=== PATIENT | female | born 1975 | race African-American/Black ===

== ENCOUNTER 2017-06-13 10:10 | Emergency (ER) | payer OTHER ==
[~2017-06-13] VITALS: Ht 167.6 cm; Wt 125.1 kg
[~2017-06-13 10:10] MED LIST: AMOX875T PO; ATEN50TA7 PO; MECL12.574 PO
[2017-06-13 10:17] VITALS: BP 165/89; PULSE 75; RESP 16; TEMP 98.7; O2SAT 97
[2017-06-13] MEDS ORDERED: CILO0.3S LEFT EYE (10:43)
[2017-06-13] MEDS ORDERED: DIFL150T PO (10:43)
--- NOTE | 2017-06-13 10:43 | PD ---
HPI Chief Complaint: Eye Problems/Injury Time Seen by Provider: 10:27 Travel History International Travel<30 days: No Contact w/Intl Traveler<30days: No Traveled to known affect area: No History of Present Illness HPI 42-year-old female here with left eye pain and foreign body sensation since this morning. Patient reports she is constant lines were has not worn her contacts for several days. She reports when she woke this morning she felt as if she had something in her left eye. She denies injury. She denies visual changes. She reports eye discomfort but does not endorse eye pain. PFSH Past Medical History Medical History: Denies Significant Hx Hypertension: Yes Influenza Vaccination: Yes ?: Not Past Surgical History Surgical History: No Previous Surgery Social History Alcohol Use: No Tobacco Use: No Substance Use: No Allergies-Medications (Allergen,Severity, Reaction): Coded Allergies: lisinopril (Verified Allergy, Severe, SWELLING, 06/13/17) Reported Meds & Prescriptions Reported Meds & Active Scripts Active Diflucan (Fluconazole) 150 Mg Tab 150 Mg PO ONCE Ciloxan Opth Drops (Ciprofloxacin HCl) 0.3% Soln 2 Drop LEFT EYE QID Reported Amoxicillin 875 Mg Tab 875 Mg PO BID Meclizine (Meclizine HCl) 12.5 Mg Tab 12.5 Mg PO DIRECTED PRN Atenolol-Chlorthalidone 50-25 Mg Tab 1 Tab PO DAILY Review of Systems Except as stated in HPI: all other systems reviewed are Neg Physical Exam Narrative GENERAL: Well-nourished, well-developed patient. SKIN: Focused skin assessment warm/dry. HEAD: Normocephalic. EYES: No scleral icterus. No injection or drainage. Left eye: Pupils are equal round and reactive. EOMs intact. Small 1 mm fluorescein dye uptake located at 11:00 on the iris of the left eye. She'll acuity 20/20. NECK: Supple, trachea midline. No JVD or lymphadenopathy. Data Data Last Documented VS Vital Signs Date Time Temp Pulse Resp B/P (MAP) Pulse Ox O2 Delivery O2 Flow Rate FiO2 06/13/17 10:17 98.7 75 16 165/89 (114) 97 Orders Orders Ed Discharge Order (06/13/17 11:03) MDM Medical Decision Making Medical Screen Exam Complete: Yes Emergency Medical Condition: Yes Differential Diagnosis CORNEAL ABRASION, CORNEAL ULCER, corneal foreign body Narrative Course 42-year-old female here with left eye pain and foreign body sensation since this morning. Patient reports she is constant lines were has not worn her contacts for several days. She reports when she woke this morning she felt as if she had something in her left eye. She denies visual changes. She reports eye discomfort but does not endorse eye pain. On exam she has a small 1 mm abrasion located at 11:00 on the iris. Visual acuity 20/20. Visual treated for corneal abrasion. Instructed not for her contact lenses. Follow-up with ophthalmology. Upon discharging the patient she requested a prescription for Diflucan. She reports that she was recently treated with antibiotics for sinus infection and developed a yeast infection. She reports the symptoms are very similar to the C6 infections. She denies abdominal pain, vaginal bleeding or possibility of STI. She will be given a prescription for Diflucan. She'll Follow-up with her PCP or MED SURG RN. Diagnosis Primary Impression: Corneal abrasion Qualified Codes: S05.02XA - Injury of conjunctiva and corneal abrasion without foreign body, left eye, initial encounter Referrals: Special Education Professional Additional Instructions: Do not wear contact lenses Using eye drops as directed. Make an appointment for follow-up with ophthalmology. Return if he developed new or worsening symptoms Scripts Fluconazole (Diflucan) 150 Mg Tab 150 MG PO ONCE for Infection, #1 TAB 0 Refills Prov: Loreto Cross 06/13/17 Ciprofloxacin Opth Drops (Ciloxan Opth Drops) 0.3% Soln 2 DROP LEFT EYE QID for EYE INFECTION, #1 BOTTLE 0 Refills Prov: Loreto Cross 06/13/17 Disposition: 01 DISCHARGE HOME Condition: Stable Loreto Cross Jun 13, 2017 10:43
== END 2017-06-13 11:10 | disposition home or self-care (01) ==
LOC: PHEFT 10:10
DX: S05.02XA Injury of conjunctiva and corneal abrasion without foreign body, left eye, initial encounter (principal); I10 Essential (primary) hypertension; Z79.2 Long term (current) use of antibiotics; Z79.899 Other long term (current) drug therapy
CPT/HCPCS: 99284

== ENCOUNTER 2017-08-08 19:41 | Emergency (ER) | payer OTHER ==
[~2017-08-08] VITALS: Ht 170.2 cm; Wt 128.0 kg
[~2017-08-08 19:41] MED LIST changes: +CILO0.3S LEFT EYE; +DIFL150T PO
--- NOTE | 2017-08-08 20:14 | PD ---
HPI Chief Complaint: Cardiac Complaint Time Seen by Provider: 19:53 Travel History International Travel<30 days: No Contact w/Intl Traveler<30days: No Traveled to known affect area: No History of Present Illness HPI 42-year-old female complains of palpitation chest pain. Patient states that she had intermittent sharp chest pain on the right-sided chest left-sided chest substernally for the past week. Patient states that the chest pain lasted a few seconds then resolved completely. Patient denies any nausea or diaphoresis. Patient started having palpitation this evening. Patient states that the palpitations lasted a short time and resolved completely. Patient denies any feeling of palpitation now. Patient denies a history of CAD. Patient has history of hypertension but has been taking atenolol an chlorthalidone daily. Patient denies a history of diabetes or hyperlipidemia. Patient is not a smoker. PFSH Past Medical History Hypertension: Yes Social History Alcohol Use: No Tobacco Use: No Substance Use: No Allergies-Medications (Allergen,Severity, Reaction): Coded Allergies: lisinopril (Verified Allergy, Severe, SWELLING, 06/13/17) Reported Meds & Prescriptions Reported Meds & Active Scripts Active Diflucan (Fluconazole) 150 Mg Tab 150 Mg PO ONCE Ciloxan Opth Drops (Ciprofloxacin HCl) 0.3% Soln 2 Drop LEFT EYE QID Reported Amoxicillin 875 Mg Tab 875 Mg PO BID Meclizine (Meclizine HCl) 12.5 Mg Tab 12.5 Mg PO DIRECTED PRN Atenolol-Chlorthalidone 50-25 Mg Tab 1 Tab PO DAILY Review of Systems General / Constitutional: No: Fever Eyes: No: Visual changes HENT: No: Headaches Cardiovascular: Positive: Chest Pain or Discomfort, Palpitations Respiratory: No: Shortness of Breath Gastrointestinal: No: Abdominal Pain Genitourinary: No: Dysuria Musculoskeletal: No: Pain Skin: No Rash Neurologic: No: Weakness Psychiatric: No: Depression Endocrine: No: Polydipsia Hematologic/Lymphatic: No: Easy Bruising Physical Exam Narrative GENERAL: Well-nourished, well-developed patient. SKIN: Focused skin assessment warm/dry. HEAD: Normocephalic. EYES: No scleral icterus. No injection or drainage. NECK: Supple, trachea midline. No JVD or lymphadenopathy. CARDIOVASCULAR: Regular rate and rhythm without murmurs, gallops, or rubs. RESPIRATORY: Breath sounds equal bilaterally. No accessory muscle use. GASTROINTESTINAL: Abdomen soft, non-tender, nondistended. MUSCULOSKELETAL: No cyanosis, or edema. BACK: Nontender without obvious deformity. No CVA tenderness. Neurologic exam normal. Data Data Last Documented VS Vital Signs Date Time Temp Pulse Resp B/P (MAP) Pulse Ox O2 Delivery O2 Flow Rate FiO2 08/08/17 21:12 69 16 156/86 (109) 98 Room Air 08/08/17 20:25 98.6 Orders Orders Electrocardiogram (08/08/17 19:59) Basic Metabolic Panel (Bmp) (08/08/17 19:59) Thyroid Stimulating Hormone (08/08/17 19:59) Iv Access Insert/Monitor (08/08/17 19:59) Ecg Monitoring (08/08/17 19:59) Chest, Single Ap (08/08/17 20:08) Complete Blood Count With Diff (08/08/17 20:09) Creatine Kinase (Cpk) (08/08/17 19:59) Troponin I (08/08/17 19:59) Electrocardiogram (08/08/17 ) Labs Laboratory Tests Test 08/08/17 20:21 White Blood Count 10.3 TH/MM3 Red Blood Count 4.52 MIL/MM3 Hemoglobin 11.2 GM/DL Hematocrit 34.3 % Mean Corpuscular Volume 76.0 FL Mean Corpuscular Hemoglobin 24.8 PG Mean Corpuscular Hemoglobin Concent 32.6 % Red Cell Distribution Width 15.0 % Platelet Count 456 TH/MM3 Mean Platelet Volume 7.4 FL Neutrophils (%) (Auto) 64.8 % Lymphocytes (%) (Auto) 27.0 % Monocytes (%) (Auto) 6.3 % Eosinophils (%) (Auto) 1.0 % Basophils (%) (Auto) 0.9 % Neutrophils # (Auto) 6.7 TH/MM3 Lymphocytes # (Auto) 2.8 TH/MM3 Monocytes # (Auto) 0.6 TH/MM3 Eosinophils # (Auto) 0.1 TH/MM3 Basophils # (Auto) 0.1 TH/MM3 CBC Comment AUTO DIFF Differential Comment AUTO DIFF CONFIRMED Blood Urea Nitrogen 8 MG/DL Creatinine 0.80 MG/DL Random Glucose 97 MG/DL Calcium Level 8.6 MG/DL Sodium Level 139 MEQ/L Potassium Level 3.2 MEQ/L Chloride Level 103 MEQ/L Carbon Dioxide Level 30.6 MEQ/L Anion Gap 5 MEQ/L Estimat Glomerular Filtration Rate 94 ML/MIN Total Creatine Kinase 122 U/L Troponin I LESS THAN 0.02 NG/ML Thyroid Stimulating Hormone 3rd Gen 2.740 uIU/ML MDM Medical Decision Making Medical Screen Exam Complete: Yes Emergency Medical Condition: Yes Interpretation(s) 21:33 PM. First EKG with low voltage unable to determine exact rhythm. Second EKG shows sinus rhythm nonspecific ST-T wave change. Last Impressions Chest X-Ray 08/08/172007 Signed Impressions: Service Date/Time: Tuesday, August 08, 2017 20:39 - CONCLUSION: Normal examination. Gregg Pinon Jr., MD CBC within normal limits. Hemoglobin 11.2 hematocrit 34.3. MCV 76. Potassium 3.2. Cardiac enzymes are normal. Differential Diagnosis Differential diagnosis including musculoskeletal, angina, DC, PE, pneumothorax, arrhythmia, atrial fibrillation, atrial flutter, PVCs, PACs. Narrative Course 42-year-old female complains of chest pain palpitation. Patient states that the chest pain has been intermittent for the past week. The palpitations started this evening. Patient denies any chest pain or palpitations now. KCl 40 mEq p.o. given. Diagnosis Primary Impression: Atypical chest pain Additional Impressions: Cardiac arrhythmia Qualified Codes: I49.9 - Cardiac arrhythmia, unspecified Hypokalemia Patient Instructions: General Instructions Additional Instructions: Advise potassium rich diet. Continue with all medication. Follow-up with hogshead packer for Holter monitor. Return if increased palpitation, increasing chest pain shortness of breath. Med/Other Pt SpecificInfo: No Change to Meds Disposition: 01 DISCHARGE HOME Condition: Stable Jose Garcia MD Aug 08, 2017 20:14
[2017-08-08 20:25] VITALS: BP 147/84; PULSE 81; RESP 16; TEMP 98.6; O2SAT 96
[2017-08-08 20:42] LABS: AUTOMATED NEUTROPHIL # 6.7 TH/MM3 (1.8-7.7); BASOPHIL # 0.1 TH/MM3 (0-0.2); BASOPHIL % 0.9 % (0.0-2.0); EOSINOPHIL # 0.1 TH/MM3 (0-0.4); HEMATOCRIT 34.3 % (35.0-46.0); HEMOGLOBIN 11.2 GM/DL (11.6-15.3); LYMPHOCYTE # 2.8 TH/MM3 (1.0-4.8); MEAN CORPUSCULAR HEMOGLOBIN 24.8 PG (27.0-34.0); MEAN CORPUSCULAR HGB CONC 32.6 % (32.0-36.0); MEAN PLATELET VOLUME 7.4 FL (7.0-11.0); MONO % 6.3 % (0.0-8.0); MONOCYTE # 0.6 TH/MM3 (0-0.9); NEUT % 64.8 % (16.0-70.0); PLATELET COUNT 456 TH/MM3 (150-450); RED BLOOD COUNT 4.52 MIL/MM3 (4.00-5.30); WHITE BLOOD COUNT 10.3 TH/MM3 (4.0-11.0)
[2017-08-08 21:03] LABS: CHLORIDE 103 MEQ/L (98-107); SODIUM (NA) 139 MEQ/L (136-145)
[2017-08-08 21:05] LABS: CALCIUM 8.6 MG/DL (8.5-10.1)
[2017-08-08 21:06] LABS: BICARBONATE 30.6 MEQ/L (21.0-32.0); BLOOD UREA NITROGEN 8 MG/DL (7-18); GLUCOSE,RANDOM 97 MG/DL (74-106)
--- NOTE | 2017-08-08 21:06 | RADRPT ---
EXAM DATE/TIME: 08/08/2017 20:39 [facility] COMPARISON: No previous studies available for comparison. INDICATIONS : Chest pain and palpitations. MEDICAL HISTORY : None. SURGICAL HISTORY : None. ENCOUNTER: Initial ACUITY: 2 days PAIN SCORE: 4/10 LOCATION: Bilateral chest FINDINGS: A single view of the chest demonstrates the lungs to be symmetrically aerated without evidence of mas s, infiltrate or effusion. The cardiomediastinal contours are unremarkable. Osseous structures are intact. CONCLUSION: Normal examination. Gregg Pinon Jr., MD on August 08, 2017 at 21:04 Board Certified Radiologist. This report was verified electronically.
[2017-08-08 21:09] LABS: GLOMERULAR FILTRATION RATE 94 ML/MIN (>89)
[2017-08-08 21:12] VITALS: BP 156/86; PULSE 69; RESP 16; O2SAT 98
[2017-08-08 21:14] LABS: TROPONIN I LESS THAN 0.02 NG/ML (0.02-0.05)
[2017-08-08] MEDS ORDERED: POTASSIUM CHLORIDE 20 MEQ CONTROLLED RELEASE TAB PO ONE (21:45)
--- NOTE | 2017-08-09 22:18 | EKG ---
Date Performed: 08/08/2017 Time Performed: 20:41:54 PTAGE: 42 years EKG: Sinus rhythm POSSIBLE RIGHT VENTRICULAR CONDUCTION DELAY NONSPECIFIC T-WAVE ABNORMALITY BORDERLINE ECG PREVIOUS TRACING : 08/08/2017 19.57 Since previous tracing, no significant change noted DOCTOR: Zac Dave Interpretating Date/Time 08/09/2017 22:17:51
--- NOTE | 2017-08-09 22:20 | EKG ---
Date Performed: 08/08/2017 Time Performed: 19:57:58 PTAGE: 42 years EKG: Sinus rhythm NONSPECIFIC T-WAVE ABNORMALITY ABNORMAL ECG NO PREVIOUS TRACING DOCTOR: Zac Dave Interpretating Date/Time 08/09/2017 22:19:26
== END 2017-08-08 22:18 | disposition home or self-care (01) ==
LOC: PHED 19:41
DX: R07.89 Other chest pain (principal); I49.9 Cardiac arrhythmia, unspecified; E87.6 Hypokalemia; R00.2 Palpitations; R94.31 Abnormal electrocardiogram [ECG] [EKG]; I10 Essential (primary) hypertension
CPT/HCPCS: 71045; 80048; 82550; 84443; 84484; 85025; 93005